=== PATIENT | male | born 1975 | race Caucasian/White ===

== ENCOUNTER 2017-06-01 20:19 | Emergency (ER) | payer OTHER ==
[~2017-06-01] VITALS: Ht 175.3 cm; Wt 79.7 kg
[~2017-06-01 20:19] MED LIST: BUSPAR5 MG PO; CELEXA10 MG PO; DELTASONE10 MG PO; EFFEXOR37.5 MG PO; FOCALIN XR20 MG PO; NABUMETONE500 MG PO; NAPROSYN500 MG PO; NOHOMEMEDS; PERCOCET 5/31 TABLET PO; TRAMADOL HCL50 MG PO; ULTRAM50 MG PO; oxyCODONE PO
[2017-06-01 22:38] LABS: HEMATOCRIT 36.6 % (38.0-50.0); MCH 29.6 PG (29.0-34.0); MCHC 33.1 G/DL (30.0-36.0); MCV 89.5 FL (86-99); MEAN PLAT.VOLUME 9.7 uM^3 (9.0-12.4); PLATELET COUNT 215 K/uL (156-360); RBC DIS.WIDTH-SD 45.6 % (39-53); RED BLOOD COUNT 4.09 M/uL (4.00-5.50); WHITE BLOOD COUNT 7.3 K/uL (4.1-10.2)
[2017-06-01 22:44] LABS: CHLORIDE 108 mEq/L (99-109); POTASSIUM 4.3 mEq/L (3.7-5.4); SODIUM 137 mEq/L (136-147)
[2017-06-01 22:46] LABS: GLUCOSE 83 mg/dL (70-99)
[2017-06-01 22:47] LABS: ANION GAP 7 MEQ/L (2-14)
[2017-06-01 22:50] LABS: GFR ESTIMATE (CALCULATED) > 59 mL/min/
[2017-06-01 22:51] LABS: UREA NITROGEN (BUN) 14 mg/dL (9-23)
[2017-06-01 23:45] VITALS: BP 120/87
== END 2017-06-01 23:46 | disposition home or self-care (01) ==
LOC: EME 20:19
PROVIDERS: Physician Assistant
DX: G89.18 Other acute postprocedural pain (principal); R68.84 Jaw pain; F17.200 Nicotine dependence, unspecified, uncomplicated; Z88.6 Allergy status to analgesic agent; Z88.0 Allergy status to penicillin
CPT/HCPCS: 70487; 80048; 81003; 85027; 99281; 99284; J1885

== ENCOUNTER 2017-06-04 20:01 | Emergency (ER) | payer OTHER ==
[~2017-06-04] VITALS: Ht 175.3 cm; Wt 77.4 kg
[2017-06-04 21:40] LABS: EOSINOPHIL (%) 1.2 % (0-5); EOSINOPHIL COUNT 0.1 K/uL (0-0.3); HEMATOCRIT 38.8 % (38.0-50.0); IMMATURE GRANULOCYTE (%) 0.5 % (0.0-0.7); IMMATURE GRANULOCYTE COUNT 0.1 K/uL; INSTRUMENT ABS NEUTROPHIL CT 8.8 K/uL; LYMPHOCYTE COUNT 1.3 K/uL (1.0-2.8); MCV 88.2 FL (86-99); MEAN PLAT.VOLUME 9.4 uM^3 (9.0-12.4); MONOCYTE (%) 5.4 % (3-12); MONOCYTE COUNT 0.6 K/uL (0-0.8); NEUTROPHIL (%) 80.9 % (45-76); NEUTROPHIL COUNT 8.8 K/uL (1.8-6.4); PLATELET COUNT 235 K/uL (156-360); RBC DIS.WIDTH-CV 14.2 % (11.8-14.6); RBC DIS.WIDTH-SD 45.3 % (39-53); WHITE BLOOD COUNT 10.9 K/uL (4.1-10.2)
[2017-06-04 21:48] LABS: CHLORIDE 105 mEq/L (99-109); POTASSIUM 3.7 mEq/L (3.7-5.4); SODIUM 138 mEq/L (136-147)
[2017-06-04 21:51] LABS: GLUCOSE 93 mg/dL (70-99)
[2017-06-04 21:52] LABS: ANION GAP 14 MEQ/L (2-14)
[2017-06-04 21:53] LABS: TOTAL BILIRUBIN 0.3 mg/dL (0.0-1.0)
[2017-06-04 21:54] LABS: ALKALINE PHOSPHATASE 102 IU/L (3-129); SERUM ETHYL ALCOHOL 214 mg/dL
[2017-06-04 21:55] LABS: GFR ESTIMATE (CALCULATED) > 59 mL/min/
[2017-06-04 21:56] LABS: UREA NITROGEN (BUN) 14 mg/dL (9-23)
[2017-06-04 21:58] LABS: LIPASE 11 U/L (1.0-51.0)
[2017-06-04 22:35] LABS: ADD MIUA? NO; BILIRUBIN NEGATIVE; BLOOD NEGATIVE; COLOR STRAW ((YELLOW)); GLUCOSE (STRIP) NEGATIVE; KETONES NEGATIVE; LEUKOCYTES NEGATIVE; NITRITE NEGATIVE; PROTEIN (STRIP) NEGATIVE; SPECIFIC GRAVITY 1.005 (1.000-1.030); UCUL ADDED? NO; UROBILINOGEN 0.2 MG/DL (0.2-1.0)
[2017-06-04 23:32] VITALS: BP 137/88
== END 2017-06-04 23:33 | disposition home or self-care (01) ==
LOC: EME 20:01
PROVIDERS: Emergency Medicine
DX: R10.13 Epigastric pain (principal); F10.10 Alcohol abuse, uncomplicated; Y90.7 Blood alcohol level of 200-239 mg/100 ml; Z93.1 Gastrostomy status; F17.200 Nicotine dependence, unspecified, uncomplicated; Z88.6 Allergy status to analgesic agent; Z88.0 Allergy status to penicillin
CPT/HCPCS: 74020; 74177; 80053; 81003; 83690; 85025; 99281; 99285; C9113; G0480; J3010; J7030